=== PATIENT | male | born 1945 | race Caucasian/White ===

== ENCOUNTER 2019-05-09 09:25 | Day surgery (SDC) | payer OTHER ==
[~2019-05-09] VITALS: Ht 188 cm; Wt 134.8 kg
[~2019-05-09 09:25] MED LIST: ACCURETIC PO; ALLO300 PO; ATEN50 PO; DOXA4 PO; GLIP5 PO; METF500C PO; NAPR220 PO; PANT40 PO
--- NOTE | 2019-05-09 10:37 | NUR ---
05/09/19 CHADD TERRELL ONE BAD IV, ONE GOOD IV
== END 2019-05-09 12:10 | disposition home or self-care (01) ==
LOC: ORSCSDS 09:25
PROVIDERS: Internal Medicine Gastroenterology
PROC: 0DB68ZX Excision of Stomach, Via Natural or Artificial Opening Endoscopic, Diagnostic (ICD-10-PCS; principal; 2019-05-09 10:45)
PROC: 0DBH8ZX Excision of Cecum, Via Natural or Artificial Opening Endoscopic, Diagnostic (ICD-10-PCS; principal; 2019-05-09 10:45)
PROC: 0DBN8ZX Excision of Sigmoid Colon, Via Natural or Artificial Opening Endoscopic, Diagnostic (ICD-10-PCS; principal; 2019-05-09 10:45)
PROC: 0DB98ZX Excision of Duodenum, Via Natural or Artificial Opening Endoscopic, Diagnostic (ICD-10-PCS; principal; 2019-05-09 10:45)
DX: D50.9 Iron deficiency anemia, unspecified (principal); D12.0 Benign neoplasm of cecum; D12.5 Benign neoplasm of sigmoid colon; K20.9 Esophagitis, unspecified; K22.2 Esophageal obstruction; K29.70 Gastritis, unspecified, without bleeding; K57.30 Diverticulosis of large intestine without perforation or abscess without bleeding; K64.1 Second degree hemorrhoids; E11.9 Type 2 diabetes mellitus without complications; I10 Essential (primary) hypertension; Z79.899 Other long term (current) drug therapy
CPT/HCPCS: 82947; 88305; 88342; J2704; J7120

== ENCOUNTER → 2022-04-26 | Outpatient (CLI) | payer OTHER | END | disposition home or self-care (01) | LOC: LAB SHORT 11:30 → LAB 11:30 | DX: N39.0 Urinary tract infection, site not specified (principal) | CPT/HCPCS: 87077; 87086; 87186 ==

== ENCOUNTER 2023-03-29 15:44 | Inpatient (IN) | payer OTHER ==
[~2023-03-29] VITALS: Ht 188 cm; Wt 147.2 kg
[~2023-03-29 15:44] MED LIST changes: +DOXA1 PO; -DOXA4 PO
[2023-03-29 16:58] LABS: BASOPHILS ABSOLUTE AUTO 0.05 K/mm3 (0.00-0.23); BASOPHILS PERCENT AUTO 1 % (0-2); EOSINOPHILS ABSOLUTE AUTO 0.25 K/mm3 (0.00-0.68); EOSINOPHILS PERCENT AUTO 5 % (0-6); Hematocrit 30.5 % (37.0-53.0); Hemoglobin 9.9 g/dL (13.5-17.5); IMMATURE GRAN ABSOLUTE AUTO 0.01 K/mm3 (0.00-0.10); IMMATURE GRAN PERCENT AUTO 0 % (0-1); LYMPHOCYTES ABSOLUTE AUTO 1.48 K/mm3 (0.84-5.20); LYMPHOCYTES PERCENT AUTO 27 % (21-46); MONOCYTES ABSOLUTE AUTO 0.26 K/mm3 (0.16-1.47); MONOCYTES PERCENT AUTO 5 % (4-13); Mean Corpuscular HGB 31.5 pg (26.0-34.0); Mean Corpuscular HGB Conc 32.5 g/dL (31.5-36.5); Mean Corpuscular Volume 97 fL (80-100); Mean Platelet Volume 9.8 fL (9.1-12.4); NEUTROPHILS ABSOLUTE AUTO 3.48 K/mm3 (1.96-9.15); NEUTROPHILS PERCENT AUTO 63 % (41-73); Platelet Count 157 K/mm3 (150-400); RDW Coefficient Variation 17.5 % (11.7-14.2); RDW Standard Deviation 62.6 fL (35.1-46.3); Red Blood Cell Count 3.14 M/mm3 (4.30-5.90); White Blood Cell Count 5.53 K/mm3 (4.00-11.30)
[2023-03-29 17:12] LABS: Albumin, Blood 1.7 g/dL (3.4-5.0); Albumin/Globulin Ratio 0.5 (0.8-1.8); Bilirubin, Total 0.4 mg/dL (0.1-1.0); Bun/Creatinine Ratio 10.3 (12.0-20.0); Calcium, Blood 7.6 mg/dL (8.5-10.1); Creatinine, Blood 4.39 mg/dL (0.60-1.20); Globulin, Blood 3.3 g/dL (2.2-4.0); Potassium, Blood 4.2 mmol/L (3.5-5.5)
[2023-03-29 19:44] LABS: Base Excess Venous -9.4 mmol/L; Bicarbonate Venous 17.4 mmol/L (24.0-30.0); pH Blood Venous 7.26 (7.34-7.37)
[2023-03-29 22:09] VITALS: BP 190/93
[2023-03-29 22:53] VITALS: BP 194/90
--- NOTE | 2023-03-29 23:40 | NUR ---
TRANSFER NOTE THIS RN RECEIVED REPORT VIA PHONE FROM NEELAM LAKE IN THE ED. PATIENT ABLE TO TRANSFER WITH 1P ASSIST FROM [facility] TO BED AFTER ARRIVAL TO UNIT. SBP 190'S. MEDICATED PER EMAR. NITRO PASTE ON LEFT CHEST. SR ON MONITOR WITH HR 70'S. ON RA WITH SPO2 >92%. AFEBRILE. PT VOIDED ON BSC AFTER ARRIVAL. BLADDER SCAN DONE PER ORDER, <200 MLS NOTED. WILL CONTINUE TO MONITOR. ELEVATING EXTREMETIES ON PILLOWS. SURGERY CONSULT CALLED IN. FLUID RESTRICTION IN PLACE; EDUCATION PROVIDED. ALERT AND ORIENTED FULLY. ABLE TO MAKE NEEDS KNOWN. BED IN LOWEST POSITION AND CALL LIGHT WITHIN REACH.
[2023-03-30] VITALS (18 sets, daily range): BP systolic 147–224; BP diastolic 62–113
[2023-03-30 04:30] LABS: BASOPHILS ABSOLUTE AUTO 0.06 K/mm3 (0.00-0.23); BASOPHILS PERCENT AUTO 1 % (0-2); EOSINOPHILS ABSOLUTE AUTO 0.26 K/mm3 (0.00-0.68); EOSINOPHILS PERCENT AUTO 5 % (0-6); Hematocrit 28.9 % (37.0-53.0); Hemoglobin 9.3 g/dL (13.5-17.5); IMMATURE GRAN ABSOLUTE AUTO 0.01 K/mm3 (0.00-0.10); IMMATURE GRAN PERCENT AUTO 0 % (0-1); LYMPHOCYTES ABSOLUTE AUTO 1.97 K/mm3 (0.84-5.20); LYMPHOCYTES PERCENT AUTO 38 % (21-46); MONOCYTES PERCENT AUTO 6 % (4-13); Mean Corpuscular HGB 31.1 pg (26.0-34.0); Mean Corpuscular HGB Conc 32.2 g/dL (31.5-36.5); Mean Corpuscular Volume 97 fL (80-100); Mean Platelet Volume 9.8 fL (9.1-12.4); NEUTROPHILS ABSOLUTE AUTO 2.54 K/mm3 (1.96-9.15); NEUTROPHILS PERCENT AUTO 49 % (41-73); Platelet Count 158 K/mm3 (150-400); RDW Coefficient Variation 17.3 % (11.7-14.2); RDW Standard Deviation 61.5 fL (35.1-46.3); Red Blood Cell Count 2.99 M/mm3 (4.30-5.90); White Blood Cell Count 5.14 K/mm3 (4.00-11.30)
[2023-03-30 05:00] LABS: Albumin, Blood 1.6 g/dL (3.4-5.0); Albumin/Globulin Ratio 0.5 (0.8-1.8); Bilirubin, Total 0.6 mg/dL (0.1-1.0); Bun/Creatinine Ratio 10.2 (12.0-20.0); Calcium, Blood 7.5 mg/dL (8.5-10.1); Creatinine, Blood 4.51 mg/dL (0.60-1.20); Globulin, Blood 3.1 g/dL (2.2-4.0); Magnesium, Blood 1.8 mg/dL (1.6-2.4); Phosphorus, Blood 4.4 mg/dL (2.5-4.9); Potassium, Blood 3.9 mmol/L (3.5-5.5); Total Protein, Blood 4.7 g/dL (6.4-8.2)
--- NOTE | 2023-03-30 05:09 | NUR ---
SHIFT SUMMARY NO ACUTE CHANGES SINCE ARRIVAL TO SHIFT. PT HAS BEEN VOIDING WELL IN BSC. ALERT AND ORIENTED FULLY AND ABLE TO MAKE NEEDS KNOWN. BLADDER SCANNER CONTINUES TO SHOW <200MLS IN BLADDER. SR WITH 1ST DEGREE HB, OCCASIONAL PVC'S AND BIGEMINY NOTED. BP STABLE AT THIS TIME, LAST SBP OF 150-160'S. AFEBRILE. SPO2 >92% ON RA. EXTREMETIES ELEVATED ON PILLOWS. BED IN LOWEST POSITION AND CALL LIGHT WITHIN REACH. THIS RN WILL CONTINUE TO MONITOR UNTIL SHIFT CHANGE AT 0700.
--- NOTE | 2023-03-30 10:54 | NUR ---
"Spiritual Care Attempted | Pt. request Pt. is awake in bed and welcomes my visit. Pt. displays evidence of being unsettled about a planned cath screen. Listen with emapathy, interest and a calming presence. Pt. declined prayer but verbalized gratitude for the spiritual care visit. Will remain available to the Pt."
[2023-03-30 10:58] LABS: SARS-Cov-2 (COVID-19) PCR, MMC NEGATIVE (NEGATIVE)
--- NOTE | 2023-03-30 13:42 | NUR ---
THE PATIENT WAS BROUGHT TO DAY SURGERY FOR HIS PROCEDURE.
--- NOTE | 2023-03-30 14:14 | NUR ---
PT BLOOD SUGAR OF [address]. [address] DUGAN ORDERED 1 AMP D50. GIVEN TO PT. WILL RECHECK CBG BEFORE OR.
--- NOTE | 2023-03-30 14:54 | NUR ---
PT CBG RECHECKED. RESULTS WERE [address] DUGAN AND DR SALDIVAR.
--- NOTE | 2023-03-30 18:48 | NUR ---
END OF SHIFT: PATIENT IS STILL ALERT AND ORIENTED COOPERATIVE WITH CARE, PLEASANT. PATIENT REMAINS TO BE HYPERTENSIVE PLEASE SEE MED CHANGES. DECREASING EDEMA. INCREASING OUTPUT WITH DIURETICS. RA STILL SPO2 >96%. SEE ASSESSMENT FOR LUNG SOUNDS. PERMACATH PLACE WITH 744 OFF PATIENT HAVING DIFFICULTY WITH REMOVAL OF FLUID AND PRESSURE WITH PERMACATH. PATIENT NOW IS ACHS DUE TO CBG CHECK WITH PRE-OP WAS LOW. ECHO DONE PLEASE SEE REPORT. NO CONCERNS FROM THIS RN AT THIS TIME. WILL CONTINUE TO MONITOR UNTIL SHIFT CHANGE.
[2023-03-31] VITALS (18 sets, daily range): BP systolic 141–187; BP diastolic 55–75
--- NOTE | 2023-03-31 05:38 | NUR ---
SHIFT SUMMARY NO ACUTE EVENTS T/O NIGHT. PT A/O X 4. FOLLOWS COMMANDS AND ABLE TO MAKE NEEDS KNOWN. PT LEGALLY BLIND AND [place]. PT C/O 6/10 PAIN IN R NECK, TYLENOL GIVEN AND PT REPORTED PAIN 2/10 AT REASSESSMENT. PERMACATH TO RIJ. DRSG C/D/I. NO REDNESS, EDEMA OR S/S OF BLEEDING NOTED. HTN NOTED. ONE DOSE OF PRN HTN MEDICATION GIVEN. OTHER VSS. ON RA. PT EDEMATOUS T/O BODY. EXTREMITIES PLACED ON PILLOWS. FR OF 1000ML PER DAY. PT VOIDED TWICE. 1 ASSIST BRP WITH WALKER. QSHIFT BLADDER SCAN DONE AND RESULTED 24MLS. WILL REPORT OFF TO ONCOMING RN.
[2023-03-31 07:09] LABS: HBSAG SCREEN Negative (Negative); HEP B CORE AB, TOT Negative (Negative)
[2023-03-31 08:03] LABS: Albumin, Blood 1.5 g/dL (3.4-5.0); Anion Gap 6 mmol/L (6-16); Blood Urea Nitrogen 39 mg/dL (8-24); CO2, Blood 19 mmol/L (21-32); Calcium, Blood 7.5 mg/dL (8.5-10.1); Chloride, Blood 116 mmol/L (98-108); Creatinine, Blood 4.33 mg/dL (0.60-1.20); Glomerular Filtration Rate 13 (60-); Glucose, Blood 92 mg/dL (70-99); Magnesium, Blood 1.8 mg/dL (1.6-2.4); Phosphorus, Blood 4.5 mg/dL (2.5-4.9); Potassium, Blood 3.8 mmol/L (3.5-5.5); Sodium, Blood 141 mmol/L (136-145)
--- NOTE | 2023-03-31 11:16 | NUR ---
DIALYSIS PT HAD A DIALYSIS CATH PLACED 03/30/23. CATH RUNS POORLY, UNABLE TO ASPIRATE ARTERIAL PORT. VENOUS RUNS WELL BUT ONLY AT 200 BFR AND ALARMS CONSTANTLY. IT SUCKS DOWN AND ALARMS. BFR 175 IS THE BEST WE CAN DO TODAY. DR MAGANA IN TO SEE PT. DISCUSSED OUR PROBLEM WITH HER. DR PINTO IN TO SEE PT. SHE WILL COME IN TOMORROW TO TRY TO ADJUST IT BEFORE TX.
--- NOTE | 2023-03-31 18:47 | NUR ---
END OF SHIFT: PATIENT OCCASSIONALLY STILL DROPS OR INTO THE UPPER 50;S WITH NO BETABLOCKERS, MUST BE RELATED TO POTENTIAL AVRIL, WILL PASS TO NIGHT RN. PATIENT HAS BEEN AXOX4 ENDORSING ABDOMEN PAIN GENERALIZED, RECIEVED HOME DOSE OF PROTONIX, THAN PATIENT THOUGHT TO BE RELATED TO GAS AND CONSTIPATION, SEE NEW BM REGIMENT. PATIENT HAS BEEN CHEST PAIN PRESSURE OR SOB AT REST FREE. PATIENT DIALYSIS PERMACATH HAD A HARD TIME WITH DIALYSIS. DR. DUGAN TO ADJUST DURING DIALYSIS, LIDOCAINE IS IN THE LOCKED MED DRAWER. PATIENT WITH CONTINUED BLOOD PRESSURE MEDS, MORNING MEDS HELD DUE TO DIALYSIS. AND WITH PATIENT NORMOTENSIVE, WAS MORE UNSTEADY ON HIS FEET. PATIENT HAS BEEN COOPERATIVE WITH CARE, SCROTAL US WAS PREFORMED NO RESULTS, WILL CONTINUE TO MONITOR UNTIL SHIFT CHANGE.
[2023-04-01] VITALS (17 sets, daily range): BP systolic 141–200; BP diastolic 56–94
[2023-04-01 04:37] LABS: Hematocrit 34.6 % (37.0-53.0); Hemoglobin 11.5 g/dL (13.5-17.5)
[2023-04-01 05:11] LABS: Magnesium, Blood 1.8 mg/dL (1.6-2.4)
[2023-04-01 05:12] LABS: Albumin, Blood 1.7 g/dL (3.4-5.0); Anion Gap 8 mmol/L (6-16); Blood Urea Nitrogen 35 mg/dL (8-24); Bun/Creatinine Ratio 8.2 (12.0-20.0); CO2, Blood 20 mmol/L (21-32); Calcium, Blood 7.8 mg/dL (8.5-10.1); Chloride, Blood 113 mmol/L (98-108); Creatinine, Blood 4.25 mg/dL (0.60-1.20); Glomerular Filtration Rate 14 (60-); Glucose, Blood 97 mg/dL (70-99); Phosphorus, Blood 4.2 mg/dL (2.5-4.9); Potassium, Blood 3.6 mmol/L (3.5-5.5); Sodium, Blood 141 mmol/L (136-145)
--- NOTE | 2023-04-01 06:45 | NUR ---
ABLE BODIED WATCHMAN SUMMARY ASSUMED CARE OF THE PT AT 1900. HE IS ALERT AND ORIENTED X4, PLEASANT WITH CARE. HE HAS GENERALIZED ANASARCA WITH WORSENING SWELLING IN HIS ARMS, PER THE PT. PT ABLE TO STAND WITH 1PA AND WALKER TO RESTROOM. HE CONTINUES TO HAVE ABDOMINAL PAIN BUT REPORTS NO BM FOR FOUR DAYS BUT WITH DECREASED ORAL INTAKE. PT ENCOURAGED TO EAT SOME APPLESAUCE THIS SHIFT. GIVEN 10 MG IV HYDRALAZINE FOR ELEVATED BP DUE TO STOMACH UPSET AND NOT WANTING TO TAKE ORAL MEDICATION. BP IMPROVED TO 160S SYSTOLIC. CBG WAS AROUND 100 SO NO COVERAGE. PT DID CIERRA DOWN TO THE 30S AT NIGHT WHILE SLEEPING BUT DID NOT SUSTAIN. SATURATIONS REMAIN >92% ON RA.
--- NOTE | 2023-04-01 09:29 | NUR ---
pt to multi tx room, Dr Matthews at bedside to adjust pts cvc.pt prepped and draped sterily. catheter pulled back 2-[address] Matthews. dialysis cath connected by Obed Walden [facility] good blood return, suture in place. 1% lidocaine used . pt tolerated well melba
--- NOTE | 2023-04-01 10:48 | NUR ---
1000 CXR DONE FOR CATH PLACEMENT, PT TOLERATED WELL. BENITA
--- NOTE | 2023-04-01 10:50 | NUR ---
1030 DR DUGAN @ BEDSIDE. XRAY RESULTS DW PT AND STAFF. PLAN FOR DR JAMESON TO EVALUATE 04/02/23 FOR POSSIBLE VENOGRAM. CVC IS IN PLACE PER RADIOLOGIST EVAL AND OK TO RUN @ LOW FLOW. DR DUGAN UPDATED DR EDWARDS. CALL FROM DR EDWARDS, UPDATED ON STATUS OF PTS TX AND THAT WE ARE CONTINUING TO RUN AT LOW FLOW. DR EDWARDS IS AMMENDABLE TO THIS. PT IS IN STABLE CONDITION AND DOZING AT THIS TIME. BENITA
--- NOTE | 2023-04-01 18:45 | NUR ---
END OF SHIFT: PATIENT REMAINS ONLY IMPROVING FROM PREVIOUS SHIFT. THROUGH THE DAY HE ENDED UP HAVING DR. DUGAN RETRACT A SMALL AMOUNT OF LENGTH FROM PERMACATH, IMPROVED ABILITY STILL NOT 100 PERCENT FOR HIGHER FLOW PULLING OF DIALYSIS. STAT CXR FOR PLACEMENT, DR. DUGAN CONSULTED DR. JAMESON FOR VENGRAM. PATIENT AWARE, HAS BEEN SLIGHTLY LIGHTHEADED, DUE TO CONTROLLED BLOOD PRESSURE, CBG HAD BEEN THERAPUETIC WITH MEALS DID NOT CHECK EVENING CBG TO PROMOTE SLEEP PATIETN HAS NOT BEEN SLEEPING WELL THROUGH THE NIGHT PROVIDER AWARE PATIETN DENIES NEED FOR MEDICATIONS. NAUSEA IS SUBSIDED WITH APPLESAUCE. PATIENT DENIES CHEST PAIN PRESSURE OR SOB. NO CONCERNS FROM THIS RN AT THIS TIME WILL CONTINUE TO MONITOR UNTIL SHIFT CHANGE.
[2023-04-02] VITALS (9 sets, daily range): BP systolic 147–191; BP diastolic 61–74
[2023-04-02 04:12] LABS: Hematocrit 27.8 % (37.0-53.0); Hemoglobin 9.2 g/dL (13.5-17.5)
--- NOTE | 2023-04-02 04:23 | NUR ---
SHIFT SUMMARY PT IS A/Ox4 AND COOPERATIVE WITH CARE PROVIDED BY STAFF. ANSWERS QUESTIONS APPROPRIATELY AND ABLE TO MAKE HER NEEDS KNOWN. NO ACTUE EVENTS OVERNIGHT FOR PT WAS ABLE TO SLEEP[ T/O MOST OF THE NIGHT. CARDIAC LI, PT REMAINS IN SR 70-80'S WITH NO C/O CP OR PRESSURE T/O THE NIGHT. SBP HAS BEEN ELEVATED, BUT RESPONDS WELL TO SCHEDULED/PRN HYDRALAZINE. RESPIRATORY LI, LS REMAIN CLEAR WITH NO C/O SOB AT REST. INCREASED RR NOTED WITHE EXERTION, BUT MAINTAINS SPO2 >90% ON RA. ABLE TO ABULATE TO BATHROOM TO VOID/BM WITH 1P ASSIST AND FWW W/GAITBELT. EXTREMITIES/TORSO REMAIN SWOLLEN. Cheryl HAS BEEN CONSULTED TO EXAMINE HD CATH THIS AM PER DR. DUGAN REQUEST. PT HAS BEEN NPO SINCE MDN PENDING SAID PROCEDURE. NO FURTHER ORDERS AT THIS TIME, WILL REPORT TO ONCOMING RN. SHABBIR JULES OF THIS NOTE.
[2023-04-02 04:41] LABS: Albumin, Blood 1.4 g/dL (3.4-5.0); Anion Gap 8 mmol/L (6-16); Blood Urea Nitrogen 31 mg/dL (8-24); Bun/Creatinine Ratio 7.5 (12.0-20.0); CO2, Blood 24 mmol/L (21-32); Calcium, Blood 7.2 mg/dL (8.5-10.1); Chloride, Blood 111 mmol/L (98-108); Creatinine, Blood 4.16 mg/dL (0.60-1.20); Glomerular Filtration Rate 14 (60-); Glucose, Blood 89 mg/dL (70-99); Magnesium, Blood 1.6 mg/dL (1.6-2.4); Phosphorus, Blood 3.8 mg/dL (2.5-4.9); Sodium, Blood 143 mmol/L (136-145)
--- NOTE | 2023-04-02 17:47 | NUR ---
SHIFT SUMMARY ALERT AND ORIENTED WHEN AWAKE. TOOK A COUPLE NAPS THIS SHIFT. ATTEMPTED DIALYSIS TREATMENT THIS AM, BUT LANDSCAPE SUPERVISOR SHERRI FLAHERTY STATED THAT HD FLOW WAS TOO SLOW FOR ADEQUEATE TREATMENT. TREATMENT WAS STOPPED AFTER ABOUT 30 MINUTES AND PATIENT WAS RETURNED TO ROOM. DR JAMESON IS CONSULTED TO CHANGE HD CATH. PATIENT EXPERIENCED SEVERE ABD PAIN DURING DIALYSIS THAT HAS BEEN INTERMITTENT AND INCREASING IN SEVERITY FOR A COUPLE DAYS. DR PICKERING ORDERED ABD CT WHICH REVEALCED ENTERCOLITIS. GI PANEL, PCR ORDERED. NO SAMPLE AT THIS TIME. PATIENT DID HAVE ONE LOOSE STOOL THIS AM. FENTANYL IV PRN ORDERED FOR PAIN. THIS WAS GIVEN ONCE AND PATIENT REPORTED PAIN MUCH BETTER DURING AFTERNOON. SBA UP WITH FWW TO BATHROOM. ROUTINE IV ABX. SBP HIGH, PRN HYDRALAZINE PER EMAR. SEVERE EDEMA THROUGHOUT. ALL EXTREMETIES ELEVATED ON PILLOWS WHILE IN BED. SEVERE SCROTAL SWELLING NOTED. LOW APPETITE THIS SHIFT.
[2023-04-03] VITALS (10 sets, daily range): BP systolic 151–193; BP diastolic 54–82
[2023-04-03 04:32] LABS: Hematocrit 29.3 % (37.0-53.0); Hemoglobin 9.6 g/dL (13.5-17.5)
[2023-04-03 04:54] LABS: Albumin, Blood 1.4 g/dL (3.4-5.0); Anion Gap 8 mmol/L (6-16); Blood Urea Nitrogen 33 mg/dL (8-24); Bun/Creatinine Ratio 7.4 (12.0-20.0); CO2, Blood 22 mmol/L (21-32); Chloride, Blood 111 mmol/L (98-108); Creatinine, Blood 4.46 mg/dL (0.60-1.20); Glomerular Filtration Rate 13 (60-); Glucose, Blood 93 mg/dL (70-99); Magnesium, Blood 1.6 mg/dL (1.6-2.4); Phosphorus, Blood 3.9 mg/dL (2.5-4.9); Sodium, Blood 141 mmol/L (136-145)
--- NOTE | 2023-04-03 05:14 | NUR ---
SHIFT SUMMARY PT REMAINS A/Ox4 AND COOPERATIVE WITH CARE. ANSWERS QUESTIONS APPROPRIATELY AND ABLE TO MAKE HIS NEEDS KNOWN. NO ACUTE EVENTS OVERNIGHT FOR PT WAS ABLE TO SLEEP T/O MOST OF THE NIGHT. CARDIAC LI, REMAINS IN SB-SR W/OCCASITONAL PVC'S WITH A RATE 50-70'S. NO C/O CP OR PRESSURE T/O THE NIGHT. SBO TRENDED UP INTO THE 180'S, RESPONDED WELL TO PRN HYDRALAZINE. RESPIRATORY LI, MAINTAINS SPO2 >90% ON RA WITH NO C/O SOB OR DYSPNEA WHILE AT REST. CONTINUES TO BE INCONTINENT/CONTINENT OF BOTH URINE AND STOOL. STOOL SAMPLE COLLECTED AND SENT TO LAB FOR ORDERED TESTS. PAIN HAS BEEN WELL MANAGED ORDERED VIA EMAR. PT HAS REMAINED NPO SINCE MDN FOR HD CATH PROCEDURE THIS AM. NO FURTHER ORDERS AT THIS TIME, WILL REPORT TO ONCOMING RN. SHABBIR JULES OF THIS NOTE.
[2023-04-03 06:10] LABS: Adenovirus F 40/41 Not Detected (NOT DETECT); Astrovirus Not Detected (NOT DETECT); Campylobacter Sp Not Detected (NOT DETECT); Cryptosporidium Not Detected (NOT DETECT); Cyclospora Cayetanensis Not Detected (NOT DETECT); E. Coli O157 Not Detected (NOT DETECT); Entamoeba Histolytica Not Detected (NOT DETECT); Enteroaggregative E. coli-EAEC Not Detected (NOT DETECT); Enteropathogenic E. coli-EPEC Not Detected (NOT DETECT); Enterotoxigenic E. coli-ETEC Not Detected (NOT DETECT); Giardia Lamblia Not Detected (NOT DETECT); Norovirus GI/GII Not Detected (NOT DETECT); Plesiomonas Shigelloides Not Detected (NOT DETECT); Rotavirus A Not Detected (NOT DETECT); Salmonella Sp Not Detected (NOT DETECT); Sapovirus Not Detected (NOT DETECT); Shiga Toxin-prod E. coli-STEC Not Detected (NOT DETECT); Shigella/Enteroin E. coli-EIEC Not Detected (NOT DETECT); Vibrio Cholerae Not Detected (NOT DETECT); Vibrio Sp Not Detected (NOT DETECT); Yersinia Enterocolitica Not Detected (NOT DETECT)
[2023-04-03 17:07] LABS: HBV IU/ML HBV DNA not detected IU/mL (.)
--- NOTE | 2023-04-03 18:43 | NUR ---
SHIFT SUMMARY ALERT, ORIENTED, [place], LEGALLY BLIND, PLEASANT AND COOPERATIVE. SBA UP TO BATHROOM WITH FWW. NPO FOR PROCEDURE WITH DR JAMESON TO FIX HD CATH TO RIGHT CHEST WALL. HIGH SBP MANAGED PER EMAR. BED BATH THIS SHIFT. ROUTINE ABX. DR DELGADO TO ROOM AT 1830 TO CONSENT PATIENT. PLAN TO GO TO FUND DEVELOPMENT MANAGER THIS EVENING.
[2023-04-04] VITALS (16 sets, daily range): BP systolic 136–196; BP diastolic 59–90
[2023-04-04 04:05] LABS: Hematocrit 31.1 % (37.0-53.0); Hemoglobin 10.3 g/dL (13.5-17.5)
[2023-04-04 04:46] LABS: Albumin, Blood 1.5 g/dL (3.4-5.0); Anion Gap 6 mmol/L (6-16); Blood Urea Nitrogen 38 mg/dL (8-24); Bun/Creatinine Ratio 7.8 (12.0-20.0); CO2, Blood 23 mmol/L (21-32); Calcium, Blood 7.3 mg/dL (8.5-10.1); Chloride, Blood 112 mmol/L (98-108); Glomerular Filtration Rate 12 (60-); Glucose, Blood 93 mg/dL (70-99); Magnesium, Blood 1.7 mg/dL (1.6-2.4); Phosphorus, Blood 4.2 mg/dL (2.5-4.9); Sodium, Blood 141 mmol/L (136-145)
--- NOTE | 2023-04-04 05:33 | NUR ---
SHIFT SUMMARY PT REMAINS A/Ox4 AND COOPERATIVE WITH CARE. ANSWERS QUESTIONS APPROPRIATELY AND ABLE TO MAKE HIS NEEDS KNOWN. NO ACUTE EVENTS OVERNIGHT FOR PT WAS ABLE TO SLEEP T/O MOST OF THE NIGHT. CARDIAC LI, REMAINS IN SB-SR W/FREQUENT PVC'S WITH A RATE 50-70'S. NO C/O CP OR PRESSURE T/O THE NIGHT. SBP TRENDED UP INTO THE 190'S, RESPONDED WELL TO PRN HYDRALAZINE. RESPIRATORY LI, MAINTAINS SPO2 >94% ON RA WITH NO C/O SOB OR DYSPNEA WHILE AT REST. CONTINUES TO BE INCONTINENT/CONTINENT OF BOTH URINE AND STOOL. PAIN HAS BEEN WELL MANAGED ORDERED VIA EMAR. PT TO RECEIVED HD THIS AM, NEW HD CATH PLACED 04/03. SOME SITE TENDERNESS REPORTED WITH MINMAL OOZING NOTED. NO NEW ORDERS AT THIS TIME, WILL REPORT TO ONCOMING RN. SHABBIR JULES OF THIS NOTE
--- NOTE | 2023-04-04 18:10 | NUR ---
TRANSFER NOTE 1730 ALERT, ORIENTED, LEGALLY BLIND, [place]. MOSTLY PLEASANT AND COOPERATIVE, OCC IRRITABLE. WENT FOR DIALYSIS THIS AM, TOOK 3L FLUID OFF. METAL EXPEDITER STATES NEW HD CATH IS FLOWING WELL. TOLERATING ADA DIET AND FLUID RESTRICTION. NSR 60-80 ON TELE. HIGH SBP MANAGED PER EMAR. ROOM AIR. SBA WITH FWW TO TOILET AND UP TO CHAIR. OCC LOOSE STOOLS IN TOILET. GENERALIZED EDEMA IMPROVED. DRESSING TO LISA POWERGLIDE CHANGED THIS SHIFT. TRANSFER ORDER FOR MEDICAL WITH TELE PLACED. REPORT CALLED TO MEDICAL RN LESLI ROUSSEAU. PATIENT LEFT UNIT AT 1700 FOR ROOM 331 VIA WHEELCHAIR.
--- NOTE | 2023-04-04 19:25 | NUR ---
1730 RECEIVED PT TO RM 331 VIA W/C FROM PCU 4. PT IS A&O, ABLE TO TX SELF TO CHAIR AT BS. UP WITH SBA TO BTHRM. CALLS FOR ASSIST NEEDED. 1L FLUID RESTRICTION. DIALYSIS TODAY. REDNESS TO SCROTUM AND HAY AREA D/T SWELLING/ANASARCA. HX HTN; MEDS GIVEN PRIOR TO TX, HELPING. SEE CHART. DENIED FURTHER NEEDS AT THIS TIME. REPORT GIVEN TO ONCOMING RN. CALL LT IN REACH.
[2023-04-05] VITALS (22 sets, daily range): BP systolic 127–173; BP diastolic 55–76
--- NOTE | 2023-04-05 04:00 | NUR ---
SHIFT SUMMARY; NO ACUTE CHANGES T/O THE NIGHT. THE PT IS AXO X4 AND A STANDBY ASSIST. THE PT HAS BEEN SLEEPING IN BED FOR THE ENTIRETY OF THE NIGHT. TELE IS IN PLACE, NSR IN THE 'S. THE PT DENIES ANY CHEST PAIN/PRESSURE, SOB, PAIN OR N/V THIS SHIFT. CURRENTLY THE PT IS SLEEPING IN BED WITH THE BED IN THE LOWEST POSITION AND THE CALL LIGHT AT BEDSIDE.
[2023-04-05 05:32] LABS: Hematocrit 28.3 % (37.0-53.0); Hemoglobin 9.6 g/dL (13.5-17.5)
[2023-04-05 06:11] LABS: Albumin, Blood 1.4 g/dL (3.4-5.0); Anion Gap 8 mmol/L (6-16); Blood Urea Nitrogen 32 mg/dL (8-24); Bun/Creatinine Ratio 7.2 (12.0-20.0); CO2, Blood 23 mmol/L (21-32); Chloride, Blood 110 mmol/L (98-108); Creatinine, Blood 4.46 mg/dL (0.60-1.20); Glomerular Filtration Rate 13 (60-); Glucose, Blood 91 mg/dL (70-99); Magnesium, Blood 1.7 mg/dL (1.6-2.4); Phosphorus, Blood 2.9 mg/dL (2.5-4.9); Potassium, Blood 2.9 mmol/L (3.5-5.5); Sodium, Blood 141 mmol/L (136-145)
--- NOTE | 2023-04-05 18:08 | NUR ---
SHIFT SUMMARY PT IS ALERT AND ORIENTED X4. SBA WITH FWW. TREATED HEADACHE PER EMAR. GOOD SPIRITS. CALM AND COOPERATIVE. DIALYSIS AT BEDSIDE TODAY. 4L REMOVED. COTTON CONVERTER REPORTED PROLONGED QT INTERVALS. DR. PICKERING NOTIFIED. EKG ORDERED. SEE NOTES. PER DR. PICKERING, OK TO GIVE PANTOPRAZOLE. 1L FLUID RESTRICTION.
[2023-04-06] VITALS (23 sets, daily range): BP systolic 139–215; BP diastolic 59–98
[2023-04-06 05:41] LABS: Hematocrit 26.5 % (37.0-53.0); Hemoglobin 8.9 g/dL (13.5-17.5)
[2023-04-06 06:00] LABS: Albumin, Blood 1.3 g/dL (3.4-5.0); Anion Gap 6 mmol/L (6-16); Blood Urea Nitrogen 23 mg/dL (8-24); Bun/Creatinine Ratio 6.4 (12.0-20.0); CO2, Blood 29 mmol/L (21-32); Calcium, Blood 6.7 mg/dL (8.5-10.1); Chloride, Blood 106 mmol/L (98-108); Creatinine, Blood 3.61 mg/dL (0.60-1.20); Glomerular Filtration Rate 17 (60-); Glucose, Blood 92 mg/dL (70-99); Magnesium, Blood 1.6 mg/dL (1.6-2.4); Phosphorus, Blood 2.2 mg/dL (2.5-4.9); Potassium, Blood 2.9 mmol/L (3.5-5.5); Sodium, Blood 141 mmol/L (136-145)
--- NOTE | 2023-04-06 06:12 | NUR ---
SHIFT SUMMARY PT'S POWERGLIDE FELL OUT OF HIS ARM JUST FROM HIS BANDAGE BECOMING LOOSE FROM HIS SWELLING. NEW POWERGLIDE PLACED IN L UPPER ARM. PT HAS HAD 3 LARGE EPISODES OF DIARRHEA TONIGHT, PER PREVIOUS RN, HE HAD 3 EPISODES ON DAY SHIFT WELL. NO C/O PAIN, RESTING WITH CALL TOBAR IN REACH
--- NOTE | 2023-04-06 17:24 | NUR ---
SHIFT SUMMARY- PT IS ALERT AND ORIENTED X4. SITTING IN CHAIR. R/A. PT DENIES SMOKING. PT EDUCATED ON RISK OF HAVING IGNITION SOURCES IN HOSPITAL. PT DENIES HAVING ANY IGNITION SOURCES. 4L REMOVED THROUGH DIALYSIS. PT TOLORATED VERY WELL. SBA WITH FWW.
[2023-04-07] VITALS (16 sets, daily range): BP systolic 124–191; BP diastolic 53–84
--- NOTE | 2023-04-07 03:47 | NUR ---
SHIFT SUMMARY NOC PT A/O X 4. PLEASANT AND COOPRATIVE WITH CARE. NO ACUTE CHANGES TO REPORT. PT URINATING FREQUENTLY DUE TO DIURESING. ON 1L FLUID RESTRICTION. PT IS ON TELE RUNNING NSR @ 90 BPM. PERM CATH DIALYSIS PORT IN [facility], AND PG IN [facility]. PT HAD DIALYSIS YESTERDAY AND 4L OF FLUID WERE REMOVED. PT DISCHARGE PLAN IS AWAITING A CHAIR AT [facility], AND [facility] PER PT/OT RECOMENDATION. PT EDUCATED ON [facility] IGNITION/ NON SMOKING POLICY. PT IS CURRENTLY RESTING WITH BED IN LOWEST POSITION, AND CALL LIGHT WITHIN REACH.
--- NOTE | 2023-04-07 04:23 | NUR ---
PT RECEIVED EDUCATION ON [facility] EXPLOSIVE IGNITION MATERIALS SAFETY POLICY.
[2023-04-07 04:46] LABS: BASOPHILS ABSOLUTE AUTO 0.05 K/mm3 (0.00-0.23); BASOPHILS PERCENT AUTO 1 % (0-2); EOSINOPHILS ABSOLUTE AUTO 0.29 K/mm3 (0.00-0.68); EOSINOPHILS PERCENT AUTO 5 % (0-6); Hematocrit 27.4 % (37.0-53.0); Hemoglobin 9.1 g/dL (13.5-17.5); IMMATURE GRAN ABSOLUTE AUTO 0.01 K/mm3 (0.00-0.10); IMMATURE GRAN PERCENT AUTO 0 % (0-1); LYMPHOCYTES PERCENT AUTO 39 % (21-46); MONOCYTES PERCENT AUTO 8 % (4-13); Mean Corpuscular HGB 31.1 pg (26.0-34.0); Mean Corpuscular HGB Conc 33.2 g/dL (31.5-36.5); Mean Corpuscular Volume 94 fL (80-100); Mean Platelet Volume 9.6 fL (9.1-12.4); NEUTROPHILS ABSOLUTE AUTO 2.77 K/mm3 (1.96-9.15); NEUTROPHILS PERCENT AUTO 47 % (41-73); Platelet Count 204 K/mm3 (150-400); RDW Coefficient Variation 16.9 % (11.7-14.2); RDW Standard Deviation 57.7 fL (35.1-46.3); Red Blood Cell Count 2.93 M/mm3 (4.30-5.90); White Blood Cell Count 5.92 K/mm3 (4.00-11.30)
[2023-04-07 05:01] LABS: Albumin, Blood 1.5 g/dL (3.4-5.0); Anion Gap 6 mmol/L (6-16); Blood Urea Nitrogen 17 mg/dL (8-24); Bun/Creatinine Ratio 5.4 (12.0-20.0); CO2, Blood 28 mmol/L (21-32); Calcium, Blood 7.1 mg/dL (8.5-10.1); Chloride, Blood 103 mmol/L (98-108); Creatinine, Blood 3.12 mg/dL (0.60-1.20); Glomerular Filtration Rate 20 (60-); Glucose, Blood 89 mg/dL (70-99); Magnesium, Blood 1.6 mg/dL (1.6-2.4); Phosphorus, Blood 1.6 mg/dL (2.5-4.9); Potassium, Blood 3.2 mmol/L (3.5-5.5); Sodium, Blood 137 mmol/L (136-145)
--- NOTE | 2023-04-07 08:00 | NUR ---
PT PLEASNT COOP A/O X3. DENIES PAIN. GENERALIED ANASASRCA. MORE IN ARMS THAN FEET. DRY SCALEY LEGS AND FEET. H/R REG NO MURMUR NOTED PER TELE NSR AT 85 WITH PVC'S PAC'S LUNGS CLELAR, RESP EASY, UNLABORED. ON R..A BT X4 LAST BM TODAY. LOOSE, HOLDING COLACE. 1 MIN ASST TO BATHROOM WITH FWW. BED IN LOW POSITION, CALLLITE KN REACH, CALLS APPROP. PT DENIES SMOKING DENIES ANY IGNITION SOURCES.
--- NOTE | 2023-04-07 09:58 | NUR ---
DIALYSIS PT STATES HE HAS DIARRHEA ADD HE IS NOT SURE HE CAN STAY ON THE MACHINE FOR [address] EDWARDS AND HE SAID TO RUN 2 HR PUF.
--- NOTE | 2023-04-07 11:46 | NUR ---
DR CHU BAEZ D/C MICHELLE. DIARRHEA
--- NOTE | 2023-04-07 11:56 | NUR ---
0925 PER TELE, QTC ELONGATED, WAS AT 49 MIDNITE, NOW AT 51. DR NOTIFIED. NO NEW ORDERS.
--- NOTE | 2023-04-07 18:38 | NUR ---
PT PLEASANT TODAY. NO C/O PAIN. HAD DIALYSIS. DID NEED CATH FLOW PER CUTTING AND SPLICING SUPERVISOR. VSS STABLE. EDEMA CONTINUES. NO NEW CONCERNS NOTED. CONTINUE TO DIURESE. BED IN LOW POSITION, CALL LITE IN REACH, CALLS APPROP
[2023-04-07] MEDS ORDERED: TAMSULOSIN HCL0.4 M1 PO (23:52)
[2023-04-07] MEDS ORDERED: METOPROLOL TART25 MG PO (23:53)
[2023-04-07] MEDS ORDERED: LISINOPRIL2.5 MG PO (23:54)
[2023-04-08] VITALS (17 sets, daily range): BP systolic 128–184; BP diastolic 54–114
--- NOTE | 2023-04-08 05:13 | NUR ---
SHIFT SUMMARY PT A&OX4 AND PLEASANT. PT UP SEVERAL TIMES T/O NIGHT TO USE BATHROOM. PT HAD 3 EPISODES OF LOOSE STOOL. BOTTOM WAS RAW AND OPEN D/T WIPING PER PT. BARIER CREAM APPLIED AFTER EACH BATHROOM USE AND AREA IS LOOKING IMPROVED. PT STATED IT WAS "FEELING BETTER" DURING WIPING. PT HAD ONE EPISODE OF SEVERE, BURNING PAIN DURING THE NIGHT. PT MEDICATED PER EMAR. HEATING PAD ALSO GIVEN WITH GOOD EFFECT. PT REMINDED OF NO SMOKING POLICY AND SOURCES OF IGNITION. BED IN LOWEST POSITION AND CALL LIGHT IN REACH.
[2023-04-08 06:09] LABS: Albumin, Blood 1.5 g/dL (3.4-5.0); Anion Gap 8 mmol/L (6-16); Blood Urea Nitrogen 21 mg/dL (8-24); Bun/Creatinine Ratio 5.6 (12.0-20.0); CO2, Blood 25 mmol/L (21-32); Calcium, Blood 7.2 mg/dL (8.5-10.1); Chloride, Blood 104 mmol/L (98-108); Creatinine, Blood 3.72 mg/dL (0.60-1.20); Glomerular Filtration Rate 16 (60-); Glucose, Blood 101 mg/dL (70-99); Magnesium, Blood 1.5 mg/dL (1.6-2.4); Phosphorus, Blood 2.2 mg/dL (2.5-4.9); Potassium, Blood 3.3 mmol/L (3.5-5.5); Sodium, Blood 137 mmol/L (136-145)
--- NOTE | 2023-04-08 18:00 | NUR ---
NURSE NOTE PATIENT WAS ASSESSED AND EDUCATED ON FIRE RISK
[2023-04-09 04:41] VITALS: BP 139/69
[2023-04-09 05:13] LABS: Hematocrit 26.3 % (37.0-53.0); Hemoglobin 8.9 g/dL (13.5-17.5)
--- NOTE | 2023-04-09 05:33 | NUR ---
SHIFT SUMMARY PT HAD MUCH BETTER NIGHT THAN PREVIOUS SHIFT. NO C/O PAIN. PT WAS ABLE TO SLEEP MOST OF THE NIGHT AND ONLY NEEDED TO USE THE BATHROOM ONCE. LOOSE STOOL EPISODES APPEARED TO BE DECREASING IN AMOUNT AND FREQUENCY. PT WAS NAUSEOUS AT START OF SHIFT BUT WAS ABLE TO EAT A COUPLE SALTINE CRACKERS WITH GOOD EFFECT. VSS. PT REMINDED OF POSSIBLE SOURCES OF IGNITION AND FIRE DANGERS. BED IN LOWEST POSITION AND CALL LIGHT IN REACH.
[2023-04-09 05:44] LABS: Albumin, Blood 1.4 g/dL (3.4-5.0); Anion Gap 4 mmol/L (6-16); Blood Urea Nitrogen 19 mg/dL (8-24); Bun/Creatinine Ratio 5.3 (12.0-20.0); CO2, Blood 28 mmol/L (21-32); Calcium, Blood 7.3 mg/dL (8.5-10.1); Chloride, Blood 104 mmol/L (98-108); Creatinine, Blood 3.58 mg/dL (0.60-1.20); Glomerular Filtration Rate 17 (60-); Glucose, Blood 97 mg/dL (70-99); Magnesium, Blood 1.9 mg/dL (1.6-2.4); Phosphorus, Blood 2.7 mg/dL (2.5-4.9); Potassium, Blood 3.5 mmol/L (3.5-5.5); Sodium, Blood 136 mmol/L (136-145)
[2023-04-09 07:36] VITALS: BP 145/64
--- NOTE | 2023-04-09 08:28 | NUR ---
pt yelling out in pain, very irritable this am, states he's in 10/10 pain in his abd, 25mcg fentanyl give for relief, states its helping some, he was appologetic for yelling, a/ox4, cooperative with care, follows commands well, lungs are clear t/o, on r/a, no cough noted, hrr, tele in place running sr per monitor, see strip, pt has anasarca, feet are 3+, left arm 3+, greater than right arm, power glide to soto site is clear and patent, btx4 abd flat soft nontender, voids, skin has some red areas, le are very dry, bottom has excoriation, barrier ointment has been applied, aissatou joseph, call light in reach.
[2023-04-09 14:21] VITALS: BP 162/74
[2023-04-09] MEDS ORDERED: LOSA50 PO (14:48)
[2023-04-09] MEDS ORDERED: HYDRA25 PO (14:48)
[2023-04-09] MEDS ORDERED: BUME2 PO (14:48)
[2023-04-09] MEDS ORDERED: SPIR50 PO (14:49)
[2023-04-09] MEDS ORDERED: POTA10T PO (14:49)
[2023-04-09 16:01] VITALS: BP 134/83
--- NOTE | 2023-04-09 18:15 | NUR ---
pt had an uneventful day, after pain got under control this am, he is in chair now for dinner, was started on norco rather than fentanyl, he states it's working much better for him. denies any sources of ignition, call light in reach.
[2023-04-09 19:20] VITALS: BP 136/78
[2023-04-10] VITALS (15 sets, daily range): BP systolic 129–184; BP diastolic 49–99
--- NOTE | 2023-04-10 05:29 | NUR ---
Shift Summary Pt had unexpected weakness moving from chair to bed, required 2 assist to bed. Later in the night pt able to use BR with 1 assist and FWW, he was much strong and steady on his feet than earlier. Pt c/o of abd pain early in the shift, stated he is frequently getting ABD pain while in the hospital after meals or pills, he can't tell which one. Pt had 1 loose stool this shift. This AM pt's systolic was 178, gave PRN Hydralazine. Slept well t/o most of the night. AOx4.
[2023-04-10 06:10] LABS: Hematocrit 28.6 % (37.0-53.0); Hemoglobin 9.7 g/dL (13.5-17.5)
[2023-04-10 06:39] LABS: Albumin, Blood 1.4 g/dL (3.4-5.0); Anion Gap 7 mmol/L (6-16); Blood Urea Nitrogen 26 mg/dL (8-24); CO2, Blood 25 mmol/L (21-32); Calcium, Blood 7.7 mg/dL (8.5-10.1); Chloride, Blood 104 mmol/L (98-108); Creatinine, Blood 4.34 mg/dL (0.60-1.20); Glomerular Filtration Rate 13 (60-); Glucose, Blood 93 mg/dL (70-99); Phosphorus, Blood 3.4 mg/dL (2.5-4.9); Potassium, Blood 3.8 mmol/L (3.5-5.5); Sodium, Blood 136 mmol/L (136-145)
[2023-04-10 13:36] LABS: Source, Urine Clean Catch
--- NOTE | 2023-04-10 13:49 | NUR ---
PT REPORTED MILD CHEST TIGHTNESS UPON RETURN FROM DIALYSIS. PT REPORTED CHEST TIGHTNESS RESOLVED AFTER SITTING UP IN THE CHAIR. VSS.
[2023-04-10 13:52] LABS: Appearance, Urine Hazy (Clear); Bilirubin, Urine Neg (Neg); Blood, Urine 5+ (Neg); Color, Urine Brown (P-Yellow); Glucose Qualitative, Urine 2+ (Neg); Ketones, Urine 1+ (Neg); Leukocyte Esterase, Urine 2+ (Neg); Nitrite, Urine Pos (Neg); Protein, Urine 4+ (Neg); Urobilinogen, Urine NORM (Normal)
[2023-04-10 14:06] LABS: Red Blood Cells, Urine TNTC /hpf (0-2); White Blood Cells, Urine 50-100 /hpf (0-5)
[2023-04-10 14:08] LABS: Granular Casts 0-2 /lpf (0)
[2023-04-10 14:09] LABS: Bacteria Many /hpf; Squamous Epithelial Cells Few /hpf (Few); Transitional Epithelial Cells Few /hpf (0-Rare)
--- NOTE | 2023-04-10 17:47 | NUR ---
SHIFT SUMMARY PT HAD DIALYSIS TODAY. PLAN IS FOR DISCHARGE HOME TOMORROW WHEN A CHAIR BECOMES OPEN AT [facility] AND [facility]. PAIN HAS BEEN MANAGED WITH TYLENOL THIS SHIFT. PT IS A 1 PERSON SBA WITH THE WALKER. PT IS TOLERATING PO. VSS. WILL MONITOR UNTIL REPORT TO [place].
--- NOTE | 2023-04-10 18:08 | NUR ---
DR. EDWARDS NOTIFIED THAT MAALOX WAS GIVEN AT NOON AND MEDICATION CHANGED TO AMPHOGEL FOR EVENING DOSE.
[2023-04-11 02:38] VITALS: BP 163/77
--- NOTE | 2023-04-11 04:28 | NUR ---
Frequent Diahrrea Pt has been having frequent loose watery stools tonight, about every 2-3 hours. He had frequent diahrrea last night as well.
[2023-04-11 05:54] LABS: Hematocrit 29.7 % (37.0-53.0); Hemoglobin 9.9 g/dL (13.5-17.5)
[2023-04-11 06:16] LABS: Albumin, Blood 1.5 g/dL (3.4-5.0); Anion Gap 6 mmol/L (6-16); Blood Urea Nitrogen 24 mg/dL (8-24); Bun/Creatinine Ratio 5.8 (12.0-20.0); CO2, Blood 27 mmol/L (21-32); Calcium, Blood 7.7 mg/dL (8.5-10.1); Chloride, Blood 105 mmol/L (98-108); Creatinine, Blood 4.15 mg/dL (0.60-1.20); Glomerular Filtration Rate 14 (60-); Glucose, Blood 95 mg/dL (70-99); Phosphorus, Blood 2.5 mg/dL (2.5-4.9); Potassium, Blood 3.9 mmol/L (3.5-5.5); Sodium, Blood 138 mmol/L (136-145)
--- NOTE | 2023-04-11 06:23 | NUR ---
Shift Summary Pt had frequent bouts of diarrhea every 2-3 hours. C/O discomfort in his abdomen, medicated per emar. Plan is to d/c home today [facility]. AOx4, slept well t/o most of the night.
[2023-04-11 08:14] VITALS: BP 147/100
--- NOTE | 2023-04-11 11:05 | NUR ---
DISCHARGE HOME Patient ready for discharge. Removed powerglide, cath tip intact. Permacath dressing CDI. Plan to DC & go to dialysis today. Patient left medical floor at 1100.
== END 2023-04-11 11:03 | disposition home or self-care (01) | DRG 673 ==
LOC: ER 15:44 → MEDS 21:02 → PCU 21:02 → MEDS 04-04 17:41 → ENPENDDIS 04-11 09:40 → MEDS 04-11 11:03
PROVIDERS: Emergency Medicine; Internal Medicine; Internal Medicine Nephrology; Nurse Practitioner Acute Care; Surgery; ADMIT Internal Medicine
PROC: 02PA03Z Removal of Infusion Device from Heart, Open Approach (ICD-10-PCS; 2023-03-30)
PROC: 02H633Z Insertion of Infusion Device into Right Atrium, Percutaneous Approach (ICD-10-PCS; 2023-03-30)
PROC: B548ZZA Ultrasonography of Superior Vena Cava, Guidance (ICD-10-PCS; 2023-03-30)
PROC: B518ZZA Fluoroscopy of Superior Vena Cava, Guidance (ICD-10-PCS; 2023-03-30)
PROC: 0JH63XZ Insertion of Tunneled Vascular Access Device into Chest Subcutaneous Tissue and Fascia, Percutaneous Approach (ICD-10-PCS; principal; 2023-03-30 13:30)
DX: I12.0 Hypertensive chronic kidney disease with stage 5 chronic kidney disease or end stage renal disease (principal); N18.6 End stage renal disease; E87.20 Acidosis, unspecified; N17.9 Acute kidney failure, unspecified; Z68.41 Body mass index [BMI] 40.0-44.9, adult; N25.81 Secondary hyperparathyroidism of renal origin; Z20.822 Contact with and (suspected) exposure to COVID-19; E87.6 Hypokalemia; K52.9 Noninfective gastroenteritis and colitis, unspecified; E88.09 Other disorders of plasma-protein metabolism, not elsewhere classified; E83.39 Other disorders of phosphorus metabolism; I16.0 Hypertensive urgency; E11.22 Type 2 diabetes mellitus with diabetic chronic kidney disease; E66.01 Morbid (severe) obesity due to excess calories; M10.9 Gout, unspecified; D63.1 Anemia in chronic kidney disease; Z99.2 Dependence on renal dialysis; Z79.899 Other long term (current) drug therapy
CPT/HCPCS: 36415; 36558; 36589; 71045; 71046; 74176; 76770; 76870; 76937; 77001; 80053; 80069; 81001; 82803; 82947; 83735; 83880; 84100; 84132; 85014; 85018; 85025; 86317; 86704; 87077; 87086; 87186; 87340; 87507; 87517; 93005; 93010; 93306; 96374; 96375; 97162; 99152; 99153; 99285-25; A9270; C1750; C1751; C1769; C1894; J0360; J0696; J0881; J1642; J1644; J2250; J2405; J2704; J2997; J3010; J3475; J3480; J7030; J7050; J7060; U0002

== ENCOUNTER → 2025-08-16 | Outpatient (CLI) | payer OTHER ==
[~2025-08-16] MED LIST changes: +ALUMINUM H320 MG/5 M PO; +BUME2 PO; +HYDRA25 PO; +LISINOPRIL2.5 MG PO; +LOSA50 PO; +METO100; +METOPROLOL TART25 MG PO; +POTA10T PO; +SPIR50 PO; +TAMS.4ER; +TAMSULOSIN HCL0.4 M1 PO
== END ==
LOC: LAB SHORT 09:00 → LAB 09:00
DX: A49.9 Bacterial infection, unspecified (principal); N18.6 End stage renal disease
CPT/HCPCS: 87086